=== PATIENT | female | born 1995 | race Caucasian/White ===

== ENCOUNTER 2017-11-12 14:31 | Emergency (ER) | payer OTHER ==
[~2017-11-12] VITALS: Ht 157.5 cm; Wt 92.0 kg
[2017-11-12] MEDS ORDERED: CYCLOBENZAPRINE 10 MG TABLET PO ONE (15:00)
[2017-11-12] MEDS ORDERED: ACETAMINOPHEN 500 MG TABLET PO ONE (15:00)
[2017-11-12] MEDS ORDERED: ACETAMINOPHEN 500 MG TABLET ONE (15:38)
[2017-11-12] MEDS ORDERED: CYCLOBENZAPRINE 10 MG TABLET ONE (15:38)
[2017-11-12 16:38] VITALS: BP 111/64
== END 2017-11-12 16:41 | disposition home or self-care (01) ==
LOC: ED 16:34
DX: O9A.211 Injury, poisoning and certain other consequences of external causes complicating pregnancy, first trimester (principal); S16.1XXA Strain of muscle, fascia and tendon at neck level, initial encounter; R10.30 Lower abdominal pain, unspecified; Z3A.12 12 weeks gestation of pregnancy; V49.59XA Passenger injured in collision with other motor vehicles in traffic accident, initial encounter; Y93.89 Activity, other specified; Y92.89 Other specified places as the place of occurrence of the external cause; Y99.8 Other external cause status
CPT/HCPCS: 76801; 99284

== ENCOUNTER 2018-02-14 10:03 | Outpatient (CLI) | payer OTHER ==
[~2018-02-14] VITALS: Ht 157.5 cm; Wt 100.5 kg
[2018-02-14] MEDS ORDERED: PREN1TAB60 PO (10:19)
[2018-02-14] MEDS ORDERED: ACET-1600 PO (10:21)
[2018-02-14 10:27] VITALS: BP 106/67
[2018-02-14 11:00] LABS: MICROSCOPIC INDICATED
== END 2018-02-14 11:52 | disposition home or self-care (01) ==
LOC: LDOP 10:03
PROVIDERS: ATTEND Obstetrics & Gynecology Gynecology
DX: O26.892 Other specified pregnancy related conditions, second trimester (principal); M54.9 Dorsalgia, unspecified; Z3A.25 25 weeks gestation of pregnancy
CPT/HCPCS: 59025; 81001; 87086; 99211; G0463

== ENCOUNTER 2018-04-02 23:12 | Outpatient (CLI) | payer OTHER ==
[~2018-04-02] VITALS: Ht 157.5 cm; Wt 102.3 kg
[~2018-04-02 23:12] MED LIST: ACET-1600 PO; PREN1TAB60 PO
[2018-04-02 23:28] VITALS: BP 111/58
== END 2018-04-02 23:54 | disposition home or self-care (01) ==
LOC: LDOP 23:12
PROVIDERS: ATTEND Obstetrics & Gynecology Gynecology
DX: O36.8130 Decreased fetal movements, third trimester, not applicable or unspecified (principal); Z3A.32 32 weeks gestation of pregnancy
CPT/HCPCS: 59025; 99211; G0463